=== PATIENT | male | born 1940 | race Caucasian/White ===

== ENCOUNTER 2017-02-12 14:20 | Emergency (ER) | payer MEDICARE, OTHER ==
[~2017-02-12 14:20] MED LIST: Donnatal Elixir 16.2 MG/5 ML UDCUP ONE; Iopamidol 370 76% 100 ML VIAL ONE; Lactated Ringer's 1,000 ML BAG ONE
[2017-02-12 14:48] LABS: #Basophils 0.1 thou/uL (0.0-0.2); #Lymphocytes 0.3 thou/uL (1.20-3.40); #Monocytes 0.7 thou/uL (0.11-0.59); %Basophils 0.6 % (0.0-1.0); %Eosinophils 0.3 % (0.0-10.0); %Lymphocytes 2.4 % (21.0-51.0); %Monocytes 5.7 % (0.0-10.0); %Neutrophils 91.1 % (42.0-75.0); Hemoglobin 13.8 g/dL (14.0-18.0); Mean Corpuscular HGB CONC 32.8 g/dL (32.0-36.0); Mean Corpuscular Hemoglobin 27.7 pg (27.0-31.0); Mean Corpuscular Volume 84.2 fl (80.0-94.0); Mean Platelet Volume 5.7 fL (7.4-10.4); Platelet Count 182 thou/uL (130-400); RBC Distribution Width 13.7 % (11.5-14.5); White Blood Cell (WBC) Count 12.1 thou/uL (4.8-10.8)
[2017-02-12] MEDS ORDERED: Aspirin 325 MG TAB ONE (14:48)
[2017-02-12] MEDS ORDERED: Pantoprazole 40 MG VIAL ONE (14:48)
[2017-02-12 14:58] LABS: INR-International Normal Ratio 1.1; PTT 27.5 SEC (22.9-36.1); Prothrombin Time 14.7 SEC (12.0-14.7)
--- NOTE | 2017-02-12 14:59 | RAD ---
AP VIEW CHEST: Date: 02/12/17 HISTORY: Chest pain. FINDINGS: Comparison made to previous exam from 03/10/04. AP view of chest demonstrates sternotomy wires seen. Mediastinal surgical clips seen. No evidence of active intrathoracic disease seen. No evidence of effusions, pneumonia, or pneumothorax seen. IMPRESSION: Unremarkable AP view of chest. POS: [facility]
[2017-02-12] MEDS ORDERED: Mag-Al Plus 1200 MG/1200 MG/120 MG/30 ML UDCUP ONE (15:01)
[2017-02-12] MEDS ORDERED: Lidocaine Viscous Sol 2% 15 ml UD Cup ONE (15:01)
[2017-02-12] MEDS ORDERED: Donnatal Elixir 16.2 MG/5 ML UDCUP ONE (15:01)
[2017-02-12 15:10] LABS: ALT (SGPT) 263 U/L (8-55); AST (SGOT) 226 U/L (5-34); Albumin 3.4 g/dL (3.4-4.8); Alkaline Phosphatase 230 U/L (40-150); Anion Gap 14 mmol/L (10-20); BUN (Urea Nitrogen) 13 mg/dL (8.4-25.7); Calc. Creatinine Clearance 0 mL/min (70-130); Calcium 8.9 mg/dL (7.8-10.44); Carbon Dioxide 21 mmol/L (23-31); Chloride 108 mmol/L (98-107); Estimated GFR-MDRD 75; Globulin 2.8 g/dL (2.4-3.5); Glucose 137 mg/dL (83-110); Potassium 3.9 mmol/L (3.5-5.1); Protein, Total 6.2 g/dL (5.8-8.1); Sodium 139 mmol/L (136-145)
[2017-02-12 15:11] LABS: CKMB 0.6 ng/mL (0-6.6); Troponin I Less than 0.010 ng/mL (< 0.028)
--- NOTE | 2017-02-12 18:48 | CT ---
CT ABDOMEN AND PELVIS WITH CONTRAST: History: Abdominal pain. Comparison: None. FINDINGS: Lung bases are clear. No pericardial effusion. Too small to characterize hypodensities present left lobe of the liver. There is extensive wall thick ening of the gallbladder with markedly irregularity. Gallbladder appears somewhat contracted and ther e is abnormal enhancement of the common bile duct and inflammation change. Moderate sized sliding hiatal hernia. A fluid reservoir is in place in the right hemipelvis. Prostate is markedly enlarged. There is moderate diverticular disease of the sigmoid colon without focal area of small volume inflam mation. Appendix is visualized and is normal. No free intraperitoneal air. Small fat containing umbilical hernia. Moderate degenerative changes at L4-5 and L5-S1 as well as non-obstructed articulation of the enlarge d L5 transverse process of the sacrum. IMPRESSION: 1. Marked irregularity thickening of the gallbladder with calculi; malignancy is at the top of the di fferential. Chronic cholecystits is also a possibility although felt less likely. There is abnormal e nhancement along the common bile duct with soft tissue infiltration concerning for malignant process. Colonangitis is also a possibility. 2. Moderate diverticular disease sigmoid colon without focal area of mild inflammation may represent early or recently resolved diverticulitis. 3. Moderate sized sliding hiatal hernia. 4. Surgical evaluation recommended for the gallbladder abnormality. 5. Markedly prostatomegaly. Intact reservoir fold over the right hemipelvis. 6. Normal appendix. POS: [facility]
[2017-02-13 15:39] LABS: HBCM Index 0.15 S/CO (0-0.79); HBSAg Index 0.24 S/CO (0-0.99); Hep A IgM AB Non-Reactive (NonReactive); Hep A IgM S/CO 0.57 S/CO (0-0.79); Hep B Surf Ag Non-Reactive S/CO (NonReactive); Hep C IgG Ab Non-Reactive (NonReactive); Hep C Index 0.17 S/CO (0-0.79); Hepatitis B Core IGM Abs Non-Reactive (NonReactive)
== END 2017-02-12 20:20 | disposition short-term general hospital (02) ==
LOC: MADERS 14:20
DX: K80.10 Calculus of gallbladder with chronic cholecystitis without obstruction (principal); K42.9 Umbilical hernia without obstruction or gangrene; I25.2 Old myocardial infarction; E78.5 Hyperlipidemia, unspecified; I10 Essential (primary) hypertension; Z79.82 Long term (current) use of aspirin; Z79.899 Other long term (current) drug therapy
CPT/HCPCS: 71010; 74177; 80053; 80074; 82150; 82553; 83690; 83880; 84484; 85025; 85610; 85730; 93005; 94760; 96374; C9113; J7120

== ENCOUNTER 2020-11-28 10:37 | Emergency (ER) | payer MEDICARE, OTHER ==
[2020-11-28 11:33] LABS: #Lymphocytes 0.5 thou/uL (1.20-3.40); #Monocytes 0.2 thou/uL (0.11-0.59); #Neutrophils 2.8 thou/uL (1.40-6.50); %Basophils 0.9 % (0.0-1.0); %Eosinophils 1.3 % (0.0-10.0); %Lymphocytes 13.4 % (21.0-51.0); %Monocytes 6.5 % (0.0-10.0); %Neutrophils 77.9 % (42.0-75.0); Hemoglobin 13.8 g/dL (14.0-18.0); Mean Corpuscular HGB CONC 30.6 g/dL (32.0-36.0); Mean Corpuscular Hemoglobin 25.5 pg (27.0-31.0); Mean Corpuscular Volume 83.3 fL (78.0-98.0); Mean Platelet Volume 5.8 fL (7.4-10.4); Platelet Count 135 thou/uL (130-400); RBC Distribution Width 14.5 % (11.5-14.5); Red Blood Cell (RBC) Count 5.41 mill/uL (4.70-6.10); White Blood Cell (WBC) Count 3.6 thou/uL (4.8-10.8)
[2020-11-28 11:48] LABS: CK (CPK) 31 U/L (30-200); CRP (Inflammatory) Less than 0.50 mg/dL (= or < 0.5)
[2020-11-28 11:50] LABS: ALT (SGPT) 15 U/L (8-55); AST (SGOT) 21 U/L (5-34); Albumin 3.6 g/dL (3.4-4.8); Alkaline Phosphatase 81 U/L (40-110); Anion Gap 13 mmol/L (10-20); BUN (Urea Nitrogen) 10 mg/dL (8.4-25.7); Bilirubin, Total 0.7 mg/dL (0.2-1.2); Calc. Creatinine Clearance 0 mL/min (70-130); Calcium 9.2 mg/dL (7.8-10.44); Carbon Dioxide 24 mmol/L (23-31); Chloride 108 mmol/L (98-107); Globulin 2.6 g/dL (2.4-3.5); Glucose 118 mg/dL (83-110); Potassium 4.4 mmol/L (3.5-5.1); Protein, Total 6.2 g/dL (5.8-8.1); Sodium 141 mmol/L (136-145)
[2020-11-28] MEDS ORDERED: Sodium Chloride 0.9% 250 ML 250 ML ONE (12:47)
[2020-11-28] MEDS ORDERED: Sodium Chloride 0.9% 100 ML ONE (12:47)
[2020-11-28] MEDS ORDERED: cefTRIAXone\\ROCEPHIN 2 GM VIAL ONE (12:47)
[2020-11-28] MEDS ORDERED: Sodium Chloride 0.9% 1,000 ML ONE (12:47)
[2020-11-28] MEDS ORDERED: Azithromycin 500 MG VIAL ONE (12:47)
[2020-11-28 14:22] LABS: Lactic Acid 1.6 mmol/L (0.5-2.2)
== END 2020-11-28 15:30 | disposition home or self-care (01) ==
LOC: MADERS 10:37
DX: U07.1 COVID-19 (principal); J12.82 Pneumonia due to coronavirus disease 2019; E78.5 Hyperlipidemia, unspecified; I25.2 Old myocardial infarction
CPT/HCPCS: 36415; 71045; 80053; 82550; 83605; 83880; 84484; 85025; 86140; 87040; 93005; 94760; 96365; 96367; J0456; J0696; J3490; J7050

== ENCOUNTER 2023-02-10 11:05 | Outpatient (CLI) | payer OTHER | END 2023-02-10 11:06 | disposition home or self-care (01) | LOC: MADRAD 11:05 | DX: M54.50 Low back pain, unspecified (principal); M47.816 Spondylosis without myelopathy or radiculopathy, lumbar region; M51.36 Other intervertebral disc degeneration, lumbar region; M48.56XA Collapsed vertebra, not elsewhere classified, lumbar region, initial encounter for fracture | CPT/HCPCS: 72100 ==